=== PATIENT | female | born 1930 | race Caucasian/White ===

== ENCOUNTER 2016-11-30 12:04 | Inpatient (IN) | payer MEDICARE, BC ==
[~2016-11-30] VITALS: Ht 177.8 cm; Wt 119.1 kg
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
[2016-12-07] MEDS ORDERED: LASIX DPS40 MG PO (13:34)
[2016-12-07] MEDS ORDERED: ASCORBIC ACID500 MG PO (13:35)
[2016-12-07] MEDS ORDERED: THERAPEUTIC MUL1 TAB PO (13:35)
[2016-12-07] MEDS ORDERED: SENOKOT S1 TAB PO (13:35)
[2016-12-07] MEDS ORDERED: KLOR-CON M2020 ME1 PO (13:35)
[2016-12-07] MEDS ORDERED: LASIX DPS80 MG PO (13:35)
[2016-12-07] MEDS ORDERED: DUONEB DPS3 ML IH (13:36)
[2016-12-07] MEDS ORDERED: VITAMIN D1000 UNIT PO (13:36)
[2016-12-07] MEDS ORDERED: LOVENOX DP40 MG/0.4 SQ (13:36)
[2016-12-07] MEDS ORDERED: [UNRECOGNIZED DRUG - OTHER] TP (13:37)
[2016-12-07] MEDS ORDERED: COLACE-DPS100 MG PO (13:37)
[2016-12-07] MEDS ORDERED: HYDROCODON-ACE1 EAC2 PO (13:37)
[2016-12-07] MEDS ORDERED: MAALOX DPS30 ML PO (13:37)
[2016-12-07] MEDS ORDERED: ENEMA READY TO133 ML PR (13:38)
[2016-12-07] MEDS ORDERED: TYLENOL DPS325 MG PO (13:38)
[2016-12-07] MEDS ORDERED: DULCOLAX-DPS10 MG PR (13:38)
[2016-12-07] MEDS ORDERED: MILK OF MAGNESI10 ML PO (13:38)
[2016-12-07] MEDS ORDERED: MONISTAT DERM28.4 GM TP (13:39)
[2016-12-07] MEDS ORDERED: MYCOSTATIN PWD15 GM TP (13:39)
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
--- NOTE | 2017-02-27 07:05 | OR ---
ADMIT: 11/30/2016 RM/LOC: [address] [place] [address] MR#: [id number] [facility]0 [place] [id number] [place] [address] Operative/Delivery Room Report SEX: F AGE: 86 : 1930 SURGERY DATE: 12/01/2016 SURGEON: Carroll Murray MD PREOPERATIVE DIAGNOSES: 1. Left distal femur fracture. 2. Bilateral proximal tibia fractures. POSTOPERATIVE DIAGNOSES: 1. Left distal femur fracture. 2. Bilateral proximal tibia fractures. PROCEDURES: 1. Open reduction and internal fixation and retrograde femoral nailing of the left femur. 2. Closed reduction and splinting of bilateral proximal tibia fractures. FIELD OBSERVER: Rodri Hennessy PA-C ANESTHESIA: General. COMPLICATIONS: None. ESTIMATED BLOOD LOSS: 100 mL. PROCEDURE IN DETAIL: The patient was taken to the operating room, received a general anesthetic. The left lower extremity was prepped and draped in a standard fashion. A tourniquet was inflated over the thigh. At that point, an incision was made over the anterior knee. This dissection was carried through subcutaneous tissue. A small medial parapatellar arthrotomy was performed. At that point, intercondylar notch was identified. We then opened up the distal femur with a reamer after placing the guide pin. We then placed a long guide idalmis up the femoral canal in retrograde fashion helping hold the fracture ADMIT: 11/30/2016 RM/LOC: 9 [facility] MR#: [id number] [facility] [id number] [place] [address] Operative/Delivery Room Report SEX: F AGE: 86 : 1930 reduced. We did not ream the femur. We then placed a [employer] retrograde femoral nail up the canal. We placed a spiral blade and locking bolt distally through a lateral incision, placed 1 locking bolt proximally percutaneously with radiolucent drill with no undue difficulty. At that point, AP and lateral images confirmed good femur reduction and good placement of all hardware. At that point, we irrigated out the wounds, closed the deep arthrotomy with 0 Vicryl, subcutaneous with 2-0 Vicryl, gertrudis in the skin. Sterile dressings were applied. At that point, we placed both lower extremities knee immobilizers helping reduce her bilateral proximal tibia fractures. These were not fixed due to her severe osteoporosis and chronic lymphedema and ulcers. At that point, the patient was taken to recovery room in stable condition with no complications. Carroll Murray MD/ harmeet JOB #: [id number] CC: Madhuri Hull MD, Attending Physician Madhuri Hull MD, Family Physician
[2017-03-16] MEDS ORDERED: LINZESS145 MCG PO (16:34)
[2017-03-16] MEDS ORDERED: MIRALAX PACKET17 GM PO (16:34)
[2017-03-16] MEDS ORDERED: TEARS NATURAL D15 ML OU (16:34)
[2017-03-16] MEDS ORDERED: LEVAQUIN DPS500 MG PO (16:36)
[2017-03-16] MEDS ORDERED: CITROMA DPS300 ML PO (16:36)
[2017-03-16] MEDS ORDERED: NITROSTAT0.4 MG SL (16:36)
== END 2016-12-06 15:44 | DRG 481 ==
LOC: ER 12:04 → 5MS 16:40
PROVIDERS: ADMIT Internal Medicine
DX: S72.452A Displaced supracondylar fracture without intracondylar extension of lower end of left femur, initial encounter for closed fracture (principal); S82.142A Displaced bicondylar fracture of left tibia, initial encounter for closed fracture; L03.115 Cellulitis of right lower limb; S82.141A Displaced bicondylar fracture of right tibia, initial encounter for closed fracture; D62 Acute posthemorrhagic anemia; L03.116 Cellulitis of left lower limb; S82.832A Other fracture of upper and lower end of left fibula, initial encounter for closed fracture; S82.831A Other fracture of upper and lower end of right fibula, initial encounter for closed fracture; S81.812A Laceration without foreign body, left lower leg, initial encounter; W05.0XXA Fall from non-moving wheelchair, initial encounter; G60.0 Hereditary motor and sensory neuropathy; M81.0 Age-related osteoporosis without current pathological fracture; I89.0 Lymphedema, not elsewhere classified; E66.9 Obesity, unspecified; Z68.33 Body mass index [BMI] 33.0-33.9, adult; Z66 Do not resuscitate